=== PATIENT | male | born 1995 | race Two or more races ===

== ENCOUNTER 2021-11-12 12:41 | Emergency (ER) | payer SELFPAY ==
[~2021-11-12] VITALS: Ht 185.4 cm; Wt 113.6 kg
[2021-11-12 12:42] VITALS: BP 136/81
== END 2021-11-12 13:08 | disposition left against medical advice (07) ==
LOC: M ED 12:41
DX: Z53.21 Procedure and treatment not carried out due to patient leaving prior to being seen by health care provider (principal)

== ENCOUNTER → 2022-04-09 | Outpatient (CLI) | payer SELFPAY | LOC: M SOG 08:10 | PROVIDERS: ATTEND Orthopaedic Surgery | DX: M25.562 Pain in left knee (principal); R93.6 Abnormal findings on diagnostic imaging of limbs ==

== ENCOUNTER → 2022-06-05 | Outpatient (CLI) | payer OTHER | LOC: M RAD 10:28 | PROVIDERS: ATTEND Orthopaedic Surgery | DX: M22.2X2 Patellofemoral disorders, left knee (principal); S83.282A Other tear of lateral meniscus, current injury, left knee, initial encounter; X58.XXXA Exposure to other specified factors, initial encounter; Y92.9 Unspecified place or not applicable; Y93.9 Activity, unspecified; Y99.9 Unspecified external cause status; M71.22 Synovial cyst of popliteal space [Baker], left knee ==